=== PATIENT | male | born 1930 | race Caucasian/White ===

== ENCOUNTER → 2017-02-11 | Outpatient (CLI) | payer BC, OTHER ==
[~2017-02-11] MED LIST: ALL100 PO; AMLH550 PO; ASPI81TA21 PO; CHOL100010 PO; CLTP PO; DSWCR TD; KETOCONAZOLE TOPICAL TD; MAGNESIUM PO; METO25TA56 PO; POTA-335 PO; SIMV40TA4 PO
[2017-02-11 13:26] LABS: CALCIUM 9.7 mg/dl (8.5-10.1); CREATININE 1.36 mg/dl (0.60-1.40)
== END | disposition home or self-care (01) ==
LOC: C.LABBC 11:59
PROVIDERS: ATTEND Physician Assistant
DX: M81.0 Age-related osteoporosis without current pathological fracture (principal); N20.0 Calculus of kidney

== ENCOUNTER → 2017-08-06 | Outpatient (CLI) | payer BC, OTHER ==
[~2017-08-06] MED LIST changes: +ASPI-319 PO; -ASPI81TA21 PO
[2017-08-06 12:44] LABS: CREATININE 1.52 mg/dl (0.60-1.40)
== END | disposition home or self-care (01) ==
LOC: C.LAB 10:31
PROVIDERS: ATTEND Physician Assistant
DX: M81.0 Age-related osteoporosis without current pathological fracture (principal)